=== PATIENT | male | born 1960 | race Caucasian/White ===

== ENCOUNTER 2021-03-22 07:23 | Day surgery (SDC) | payer OTHER ==
[2021-03-21 08:11] VITALS: BMI 26.9
[~2021-03-22 07:23] MED LIST: LACTATED RINGERS 1,000 ML IV SCH; LIDOCAINE 1% (10MG/ML) FOR IV START INTRADERMA PRN
[2021-03-22 07:44] VITALS: RESP 16; TEMP 97.5
[2021-03-22] MEDS ORDERED: PROPOFOL 10 MG/ML 20 ML VIAL IV ONE (08:09)
[2021-03-22] MEDS ORDERED: LIDOCAINE 1% INJ 10MG/ML (20 ML MDV) ONE (08:09)
--- NOTE | 2021-03-22 08:26 | P.PCN ---
Date of Procedure: 03/22/21 Procedure(s) Performed: BRIEF HISTORY: Patient is a 60-year-old pleasant white male scheduled for an elective colonoscopy as a part of screening for colon cancer PROCEDURE PERFORMED: Colonoscopy. PREOPERATIVE DIAGNOSIS: Screening for colon cancer. IV sedation per Anesthesia. PROCEDURE: After informed consent was obtained, the patient, was brought into the endoscopy unit. IV sedation was administered by Anesthesia under continuous monitoring. Digital rectal examination was normal. Initially the Olympus CF-160 flexible video colonoscope was then inserted in the rectum, gradually advanced into the cecum without any difficulty. Careful examination was performed as the scope was gradually being withdrawn. Ileocecal valve and the appendiceal orifice were visualized and appeared normal. Prep was excellent. Mucosa of the cecum, ascending colon, transverse colon, descending colon, sigmoid colon, and rectum appeared normal. Retroflexion was performed in the rectum and no lesions were seen. The patient tolerated the procedure well. IMPRESSION: Normal-appearing colon from rectum to cecum with no evidence of colorectal neoplasia. RECOMMENDATIONS: Findings of this examination were discussed with the patient as well as his family. He was advised to have a repeat screening colonoscopy in 10 years..
[2021-03-22 09:07] VITALS: BP 107/62; PULSE 73
== END 2021-03-22 09:23 | disposition home or self-care (01) ==
LOC: ORWHC2ENDO 07:23
PROVIDERS: ATTEND Internal Medicine Gastroenterology
DX: Z12.11 Encounter for screening for malignant neoplasm of colon (principal)
CPT/HCPCS: 45378; J2001; J2704

== ENCOUNTER → 2021-08-23 | Outpatient (CLI) | payer OTHER ==
--- NOTE | 2021-08-23 19:27 | MR ---
EXAMINATION TYPE: MR knee LT wo con DATE OF EXAM: 08/23/2021 COMPARISON: None HISTORY: Left knee pain, gastrocnemius muscle stain. TECHNIQUE: Multiplanar, multisequence imaging of the left knee is performed without IV contrast. FINDINGS: There is motion on the exam. MEDIAL MENISCUS: Anterior and posterior horns are intact without tear. Pseudoextrusion is noted LATERAL MENISCUS: Anterior and posterior horns are intact without tear. CRUCIATE LIGAMENTS: The anterior and posterior cruciate ligaments are intact and unremarkable. COLLATERAL LIGAMENTS: The medial collateral ligament and lateral collateral ligament complex are inta ct and unremarkable. EXTENSOR MECHANISM: Visualized quadriceps and patellar tendons are intact. EFFUSION: There is a small knee joint effusion POPLITEAL CYST: No popliteal/whitlock cyst. 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 There is some fluid signal presen t posterior to the distal femur laterally. IMPRESSION: Suspect some mild osteoarthritic change. Small joint effusion and additional findings above
--- NOTE | 2021-08-24 05:32 | MR ---
EXAMINATION TYPE: MR tib fib LT wo con DATE OF EXAM: 08/23/2021 COMPARISON: None HISTORY: Left knee pain, gastrocnemius muscle stain. Multiplanar multiecho imaging of the left lower leg without contrast. The tibia and fibula show fairly normal signal pattern. No bone edema. The ankle mortise is anatomic. The knee joint is intact. No evidence of any significant knee joint effusion. Muscle bundles of the lower legs are fairly symmetric. No evidence of any pathologic fluid collection. No evidence of soft tissue mass. IMPRESSION: Negative MR scan of the left lower leg. No evidence of muscle tear. No evidence of fracture.
== END | disposition home or self-care (01) ==
LOC: RADMRIMAIN 15:07
PROVIDERS: ATTEND Family Medicine
DX: M25.562 Pain in left knee (principal); S86.112S Strain of other muscle(s) and tendon(s) of posterior muscle group at lower leg level, left leg, sequela

== ENCOUNTER 2021-09-27 09:18 | Emergency (ER) | payer OTHER ==
[2021-09-27] MEDS ORDERED: ACETAMINOPHEN TAB 500 MG TAB PO STA (09:57)
--- NOTE | 2021-09-27 09:57 | ED ---
General Adult HPI - General Chief complaint: Upper Respiratory Infection Stated complaint: covid+, SOB Time Seen by Provider: 09/27/21 09:50 Source: patient, RN notes reviewed, old records reviewed Mode of arrival: ambulatory Limitations: no limitations - History of Present Illness Initial comments: This is a well-appearing 61-year-old male who presents to the emergency room with complaints of shortness of breath since Sunday. He states he does have a fever and a cough and did test positive for coronavirus. He did call his primary care doctor who recommended he come to the emergency room for chest x- ray. He states he has been taking NSAIDs for pain relief. Denies any nausea vomiting or chest pain. He states that he has been vaccinated. -: days(s) (4) Severity scale (1-10): 8 Quality: aching, constant Associated Symptoms: cough, fever/chills, shortness of breath, other (Body aches) Treatments Prior to Arrival: NSAID - Related Data Home Medications Medication Instructions Recorded Confirmed Doxazosin Mesylate [Cardura] 6 mg PO DAILY 03/21/21 09/27/21 FLUoxetine HCL [PROzac] 40 mg PO DAILY 03/21/21 09/27/21 Ibuprofen [Motrin Ib] 400 mg PO Q8H PRN 09/27/21 09/27/21 Previous Rx's Medication Instructions Recorded Nirmatrelvir/Ritonavir [Paxlovid 1 each PO BID 5 Days #1 pack 09/27/21 150-100 mg Pack (Eua)] Allergies Allergy/AdvReac Type Severity Reaction Status Date / Time No Known Allergies Allergy Verified 09/27/21 10:42 Review of Systems ROS Statement: Those systems with pertinent positive or pertinent negative responses have been documented in the HPI. ROS Other: All systems not noted in ROS Statement are negative. Past Medical History Past Medical History: GERD/Reflux, Hypertension, Osteoarthritis (OA), Prostate Disorder Additional Past Medical History / Comment(s): migraines, History of Any Multi-Drug Resistant Organisms: None Reported Additional Past Surgical History / Comment(s): colonoscopy, lasik eye surgery, Past Anesthesia/Blood Transfusion Reactions: No Reported Reaction Past Psychological History: Anxiety Smoking Status: Former smoker Past Alcohol Use History: None Reported Past Drug Use History: Marijuana - Past Family History Brother(s) Family Medical History: Cancer, Deep Vein Thrombosis (DVT) Additional Family Medical History / Comment(s): kidney cancer General Exam Limitations: no limitations General appearance: alert, in no apparent distress Head exam: Present: atraumatic Eye exam: Absent: scleral icterus, conjunctival injection, periorbital swelling ENT exam: Present: mucous membranes moist Neck exam: Present: normal inspection, full ROM. Absent: tenderness, meningismus Respiratory exam: Present: normal lung sounds bilaterally. Absent: respiratory distress, wheezes, rales, rhonchi, stridor, accessory muscle use Cardiovascular Exam: Present: tachycardia GI/Abdominal exam: Present: soft. Absent: distended, guarding Extremities exam: Present: normal capillary refill. Absent: tenderness, pedal edema Neurological exam: Present: alert, oriented X3 Psychiatric exam: Present: normal affect, normal mood Skin exam: Present: warm, dry, normal color. Absent: cyanosis, diaphoretic Course Vital Signs 09/27/21 09/27/21 09/27/21 09:26 09:45 11:04 Temperature 99 F 100.8 F H 99 F Pulse Rate 117 H 88 Respiratory 18 20 Rate Blood Pressure 121/85 106/68 O2 Sat by Pulse 96 97 96 Oximetry Medical Decision Making - Medical Decision Making Patient presents to ER with complaints of cough, fever and body aches after testing positive for coronavirus. Patient's symptoms started on Sunday. He has been vaccinated against coronavirus. No evidence of acute cardiopulmonary disease on chest x-ray. He is willing to do Paxlovid. Vital signs are stable. Oxygen saturation is 96% on room air. He was encouraged to take vitamin C, vitamin D and zinc daily and increase his fluid intake. Tylenol and or Motrin as needed for pain or fevers. He states he has no history of kidney disease. Patient is agreeable to this plan of care. Case discussed with Dr. Aguirre. Disposition Clinical Impression: COVID-19 Disposition: HOME SELF-CARE Condition: Good Instructions (If sedation given, give patient instructions): Upper Respiratory Infection (ED), COVID-19 (Coronavirus Disease 2019) (ED) Additional Instructions: Increase your fluid intake. Take Tylenol and/or Motrin as needed for any pain or fevers. Take paxlovid as prescribed to help shorten the duration of your illness. Self quarantine for 10 days from symptom onset. If after 5 days you have no symptoms you can go into public wearing just a mask for the remaining 5 days. Return to the emergency room with any new or concerning symptoms. Prescriptions: Nirmatrelvir/Ritonavir [Paxlovid 150-100 mg Pack (Eua)] 1 each PO BID 5 Days #1 pack Is patient prescribed a controlled substance at d/c from ED?: No Referrals: Danyelle Nelson DO [Primary Care Provider] - 1-2 days Time of Disposition: 10:49
--- NOTE | 2021-09-27 10:22 | XR ---
EXAMINATION TYPE: XR chest 2V DATE OF EXAM: 09/27/2021 10:12 AM COMPARISON: None TECHNIQUE: XR chest 2V Frontal and lateral views of the chest. CLINICAL INDICATION:Male, 61 years old with history of cough fever covid +; FINDINGS: Lungs/Pleura: There is no evidence of pleural effusion, focal consolidation, or pneumothorax. Pulmonary vascularity: Unremarkable. Heart/mediastinum: Cardiomediastinal silhouette is unremarkable. Musculoskeletal: No acute osseous pathology. IMPRESSION: No definitive evidence for covid or acute cardiopulmonary disease/process.
[2021-09-27 11:05] VITALS: BP 106/68; PULSE 88; RESP 20; TEMP 99
== END 2021-09-27 11:05 | disposition home or self-care (01) ==
LOC: EC 09:18
DX: U07.1 COVID-19 (principal); I10 Essential (primary) hypertension; Z87.891 Personal history of nicotine dependence
CPT/HCPCS: 71046; 99284

== ENCOUNTER → 2022-12-20 | Outpatient (CLI) | payer OTHER ==
--- NOTE | 2022-12-21 10:45 | CT ---
EXAMINATION TYPE: CT brain wo con DATE OF EXAM: 12/20/2022 COMPARISON: None HISTORY: Some memory loss, unbalanced equilibrium, hand tremors x months CT DLP: 1202.1 mGycm Automated exposure control for dose reduction was used. FINDINGS: Ventricular systems compatible patient's age. No midline shift or mass effect. No acute hemorrhage. Orbits are symmetric. Calvarium intact. Changes of mild to moderate chronic sinusitis. IMPRESSION: 1. NO ACUTE PROCESS. IF SYMPTOMS PERSIST CONSIDER MRI. 2. [id number] CHRONIC SINUSITIS.
== END | disposition home or self-care (01) ==
LOC: RADCTMAIN 16:14
PROVIDERS: ATTEND Family Medicine
DX: G31.84 Mild cognitive impairment of uncertain or unknown etiology (principal); J32.9 Chronic sinusitis, unspecified; G25.2 Other specified forms of tremor
CPT/HCPCS: 70450